=== PATIENT | female | born 1990 | race Caucasian/White ===

== ENCOUNTER 2019-06-23 21:14 | Emergency (ER) | payer OTHER ==
[~2019-06-23] VITALS: Ht 154.9 cm; Wt 79.8 kg
[2019-06-24] MEDS ORDERED: KEFLEX500 MG PO (03:59)
== END 2019-06-24 04:32 | disposition home or self-care (01) ==
LOC: ER 21:14
DX: O23.41 Unspecified infection of urinary tract in pregnancy, first trimester (principal); O26.891 Other specified pregnancy related conditions, first trimester; R10.33 Periumbilical pain; Z34.01 Encounter for supervision of normal first pregnancy, first trimester

== ENCOUNTER 2019-12-10 14:14 | Inpatient (IN) | payer OTHER ==
[~2019-12-10] VITALS: Ht 157.5 cm; Wt 88.0 kg
[~2019-12-10 14:14] MED LIST: KEFLEX500 MG PO
[2020-01-04] MEDS ORDERED: PRENATAL PLUS1 EAC1 PO (07:25)
== END 2020-01-06 17:02 | disposition home or self-care (01) | DRG 807 ==
LOC: OB/GYN 01-03 13:15 → LDR 01-04 06:42 → OB/GYN 01-04 15:28
PROVIDERS: ADMIT Obstetrics & Gynecology; ATTEND Obstetrics & Gynecology
PROC: 10E0XZZ Delivery of Products of Conception, External Approach (ICD-10-PCS; principal; 2020-01-04)
PROC: 0KQM0ZZ Repair Perineum Muscle, Open Approach (ICD-10-PCS; 2020-01-04)
PROC: 3E0P7VZ Introduction of Hormone into Female Reproductive, Via Natural or Artificial Opening (ICD-10-PCS; 2020-01-04)
PROC: 3E033VJ Introduction of Other Hormone into Peripheral Vein, Percutaneous Approach (ICD-10-PCS; 2020-01-04)
PROC: 10907ZC Drainage of Amniotic Fluid, Therapeutic from Products of Conception, Via Natural or Artificial Opening (ICD-10-PCS; 2020-01-04)
PROC: 4A1HXCZ Monitoring of Products of Conception, Cardiac Rate, External Approach (ICD-10-PCS; 2020-01-04)
DX: O70.1 Second degree perineal laceration during delivery (principal); Z37.0 Single live birth; O48.0 Post-term pregnancy; Z3A.40 40 weeks gestation of pregnancy